=== PATIENT | male | born 1945 | race Caucasian/White ===

== ENCOUNTER 2018-02-18 06:59 | Day surgery (SDC) | payer MEDICARE, BC ==
[2018-02-17 12:39] LABS: BASOPHILS % (AUTO) 0.2 % (0-1); EOSINOPHILS # (AUTO) 0.2 X10'3 (0-0.9); EOSINOPHILS % (AUTO) 2.3 % (0-6); HEMATOCRIT 44.6 % (42.0-52.0); HEMOGLOBIN 14.7 g/dl (14.0-17.9); LYMPHOCYTES # (AUTO) 1.4 X10'3 (1.1-4.8); LYMPHOCYTES % (AUTO) 15.1 % (21-51); MEAN CORPUSCULAR HEMOGLOBIN 27.8 PG (27.0-31.0); MEAN CORPUSCULAR VOLUME 84.3 FL (78-98); MEAN PLATELET VOLUME 9.2 FL (7.4-10.4); MONOCYTES # (AUTO) 0.7 X10'3 (0-0.9); MONOCYTES % (AUTO) 7.1 % (2-12); NEUTROPHILS % (AUTO) 75.3 % (42-75); PLATELET COUNT 264 X10'3 (140-440); RED BLOOD COUNT 5.29 X10'6 (4.70-6.10); RED CELL DISTRIBUTION WIDTH 14.2 % (11.5-14.5); WHITE BLOOD COUNT 9.3 X10'3 (4.5-11.0)
[2018-02-17 12:49] LABS: ALBUMIN 3.5 G/DL (3.4-5.0); ANION GAP 9 (8-16); BLOOD UREA NITROGEN 23 MG/DL (7-18); BUN/CREATININE RATIO 17.8 (5.4-32.0); CALCIUM 8.7 MG/DL (8.5-10.1); CHLORIDE 102 MMOL/L (99-107); CREATININE 1.29 MG/DL (0.60-1.10); GLUCOSE 89 MG/DL (70-104); SODIUM 139 MMOL/L (135-145); TOTAL CARBON DIOXIDE 28.2 MMOL/L (24-32); eGFR 54 ML/MIN
[2018-02-17 13:03] LABS: PARTIAL THROMBOPLASTIN TIME 29 SECONDS (22-32); PROTHROMBIN TIME 10.3 SECONDS (9.0-12.0)
[~2018-02-18] VITALS: Ht 172.7 cm; Wt 91.7 kg
[2018-02-18] VITALS (15 sets, daily range): BP systolic 99–166; BP diastolic 40–78
[~2018-02-18 06:59] MED LIST: AMLO10TA PO; CLOP75TA35 PO; FAMO-128 PO; LISI-600 PO; METO-395 PO; MULT-1179 PO; NITR0.4T48 SL; PARO-62 PO; ROSU20TA PO
[2018-02-18] MEDS ORDERED: LORazepam 0.5 MG tablet PO PRN (07:25)
[2018-02-18] MEDS ORDERED: diphenhydrAMINE 25mg capsule PO PRN (07:25)
[2018-02-18] MEDS ORDERED: normal saline 1000ml 1,000 ML IV SCH ×2 (07:25→07:50)
[2018-02-18] MEDS ORDERED: sod bicarbonate 150mEq in D5W 1,150 ML IV ONE ×2 (07:25→17:10)
[2018-02-18] MEDS ORDERED: LIDOcaine 1% (10mg/ml) 2ml vial ONE (07:26)
[2018-02-18] MEDS ORDERED: acetylcysteine 200 MG/ml 4ml vial PO SCH (07:30)
[2018-02-18] MEDS ORDERED: METO25TA6 PO (07:39)
[2018-02-18] MEDS ORDERED: ASPI81TA52 PO (07:39)
[2018-02-18] MEDS ORDERED: NITR0.4T51 SL (07:39)
[2018-02-18] MEDS ORDERED: HYDR-4069 PO (07:39)
[2018-02-18] MEDS ORDERED: AMLO5TAB PO (07:39)
[2018-02-18] MEDS ORDERED: CLOP75TA15 PO (07:39)
[2018-02-18] MEDS ORDERED: VALS160T2 PO (07:39)
[2018-02-18] MEDS ORDERED: iohexol 350MG/ML 100ml bottle IV ONE ×2 (08:18→09:16)
[2018-02-18] MEDS ORDERED: nitroGLYCERIN-Tridil 50MG/D5W 250 ML IV ONE (08:18)
[2018-02-18] MEDS ORDERED: midazolam 2 mg/2 ml injection ONE ×2 (08:18→10:36)
[2018-02-18] MEDS ORDERED: heparin 1,000unit/ml 10ml vial 10 ML ONE (08:18)
[2018-02-18] MEDS ORDERED: LIDOcaine 1% 30ml preserv. free vial ONE (08:18)
[2018-02-18] MEDS ORDERED: iohexol 350 MG/ML 50ML vial IV ONE (08:18)
[2018-02-18] MEDS ORDERED: fentaNYL/PF 50MCG/1 ML 2ML syringe ONE (08:19)
[2018-02-18] MEDS ORDERED: pneumococcal 23-VAL P-sac vacc 25 mcg/0.5ml vial IMVAC ONE (10:00)
[2018-02-18] MEDS ORDERED: heparin 1,000 UNITS/NS 500ml 500 ML ONE (10:26)
[2018-02-18] MEDS ORDERED: acetaminophen 325mg tablet PO PRN (11:45)
[2018-02-18] MEDS ORDERED: OXAZEpam 15mg capsule PO PRN (11:45)
[2018-02-18] MEDS ORDERED: cyclobenzaprine 10mg tablet PO PRN (11:45)
[2018-02-18] MEDS ORDERED: aspirin 81mg tab.chew PO ONE (11:45)
[2018-02-18] MEDS ORDERED: proCHLORperazine 10 MG/2 ml inj IV PRN (11:45)
[2018-02-18] MEDS ORDERED: HYDROcodone/acetaminophen 10/325mg tab PO PRN ×2 (11:45→11:50)
[2018-02-18] MEDS ORDERED: magnesium hydroxide 30ml (MOM) UD suspension PO PRN (11:45)
[2018-02-18] MEDS ORDERED: docusate sod 100mg capsule PO SCH (20:00)
[2018-02-19] MEDS ORDERED: aspirin 325mg tablet PO SCH (08:00)
== END 2018-02-18 20:00 | disposition home or self-care (01) ==
LOC: SSTAY O 06:59
PROVIDERS: ATTEND Internal Medicine Cardiovascular Disease
DX: I25.708 Atherosclerosis of coronary artery bypass graft(s), unspecified, with other forms of angina pectoris (principal); E78.5 Hyperlipidemia, unspecified; G47.33 Obstructive sleep apnea (adult) (pediatric); I12.9 Hypertensive chronic kidney disease with stage 1 through stage 4 chronic kidney disease, or unspecified chronic kidney disease; E11.22 Type 2 diabetes mellitus with diabetic chronic kidney disease; N18.9 Chronic kidney disease, unspecified; I25.2 Old myocardial infarction; F32.9 Major depressive disorder, single episode, unspecified; E66.3 Overweight; F41.8 Other specified anxiety disorders; Z95.5 Presence of coronary angioplasty implant and graft; Z95.1 Presence of aortocoronary bypass graft; Z86.79 Personal history of other diseases of the circulatory system; Z79.82 Long term (current) use of aspirin; Z23 Encounter for immunization; Z87.891 Personal history of nicotine dependence; Z87.01 Personal history of pneumonia (recurrent); Z86.14 Personal history of Methicillin resistant Staphylococcus aureus infection; Z68.30 Body mass index [BMI] 30.0-30.9, adult; Z98.41 Cataract extraction status, right eye; Z98.42 Cataract extraction status, left eye; Z79.899 Other long term (current) drug therapy; Z98.890 Other specified postprocedural states; Z82.49 Family history of ischemic heart disease and other diseases of the circulatory system
CPT/HCPCS: 36415; 80048; 85025; 85347; 85610; 85730; 90732; 93005; 93459; 99152; 99153; A6257; C1725; C1769; C1885; C9604; J1644; J2250; J3010; J3490; J7030; Q0163; Q9967; A4620

== ENCOUNTER 2020-01-23 10:36 | Emergency (ER) | payer MEDICARE, BC ==
[~2020-01-23] VITALS: Ht 172.7 cm; Wt 87.7 kg
[~2020-01-23 10:36] MED LIST changes: -AMLO10TA PO; +AMLO5TAB PO; +ASPI81TA52 PO; +CLOP75TA15 PO; -CLOP75TA35 PO; -FAMO-128 PO; +HYDR-4069 PO; -LISI-600 PO; -METO-395 PO; +METO25TA6 PO; -NITR0.4T48 SL; +NITR0.4T51 SL; -ROSU20TA PO; +ROSU20TA2 PO; +VALS160T2 PO
[2020-01-23] MEDS ORDERED: ketorolac tromethamine 15mg/ml inj. IM ONE (11:35)
[2020-01-23 12:04] LABS: BASOPHILS # (AUTO) 0.1 X10'3 (0-0.2); BASOPHILS % (AUTO) 0.3 % (0-1); EOSINOPHILS # (AUTO) 0.2 X10'3 (0-0.9); EOSINOPHILS % (AUTO) 1.1 % (0-6); HEMATOCRIT 44.8 % (42.0-52.0); HEMOGLOBIN 14.8 g/dl (14.0-17.9); LYMPHOCYTES # (AUTO) 1.6 X10'3 (1.1-4.8); LYMPHOCYTES % (AUTO) 8.3 % (21-51); MEAN CORPUSCULAR HEMOGLOBIN 28.4 PG (27.0-31.0); MEAN CORPUSCULAR VOLUME 86.2 FL (78-98); MEAN PLATELET VOLUME 8.9 FL (7.4-10.4); MONOCYTES # (AUTO) 1.4 X10'3 (0-0.9); MONOCYTES % (AUTO) 7.3 % (2-12); NEUTROPHILS # (AUTO) 15.5 X10'3 (1.8-7.7); PLATELET COUNT 247 X10'3 (140-440); RED BLOOD COUNT 5.19 X10'6 (4.70-6.10); RED CELL DISTRIBUTION WIDTH 13.9 % (11.5-14.5); WHITE BLOOD COUNT 18.7 X10'3 (4.5-11.0)
[2020-01-23 12:12] LABS: PARTIAL THROMBOPLASTIN TIME 27 SECONDS (22-32)
[2020-01-23 12:14] LABS: ALANINE AMINOTRANSFERASE 23 U/L (12-78); ALBUMIN 3.8 G/DL (3.4-5.0); ALBUMIN/GLOBULIN RATIO 1.2 (1.1-1.5); ALKALINE PHOSPHATASE 75 IU/L (46-116); ANION GAP 7 (8-16); ASPARTATE AMINO TRANSFERASE 17 U/L (10-37); BILIRUBIN,TOTAL 0.5 MG/DL (0.1-1.0); BLOOD UREA NITROGEN 25 MG/DL (7-18); BUN/CREATININE RATIO 17.7 (5.4-32.0); CHLORIDE 101 MMOL/L (99-107); CREATININE 1.41 MG/DL (0.60-1.10); GLUCOSE 100 MG/DL (70-104); POTASSIUM 4.7 MMOL/L (3.5-5.1); SODIUM 137 MMOL/L (135-145); TOTAL CARBON DIOXIDE 29.5 MMOL/L (24-32); TOTAL PROTEIN 6.9 G/DL (6.4-8.2); eGFR 49 ML/MIN
[2020-01-23 12:22] LABS: MAGNESIUM 1.9 MG/DL (1.5-2.4)
[2020-01-23] MEDS ORDERED: normal saline 1000ML IV soln IVB ONE (12:40)
[2020-01-23 12:54] LABS: CLARITY,URINE CLEAR (Clear); COLOR,URINE YELLOW (Yellow); GLUCOSE, URINE NEGATIVE (Neg); KETONES,URINE NEGATIVE (Neg); LEUKOCYTE ESTERASE ,URINE NEGATIVE (Neg); NITRITES, URINE NEGATIVE (Neg); OCCULT BLOOD,URINE NEGATIVE (Neg); PH,URINE 6.5 (4.8-8.0); PROTEIN,URINE TRACE mg/dl (Neg)
[2020-01-23 12:55] LABS: UA COLLECTION TYPE CLN CATCH MIDSTREAM
[2020-01-23 13:04] LABS: BACTERIA,URINE NONE SEEN /HPF (Neg); CELLULAR CAST 0-4 /LPF (NEGATIVE); MUCUS STRANDS NONE SEEN /LPF (Neg); RBC,URINE NONE SEEN /HPF (0-2); SQUAMOUS EPITHELIAL CELL,UR FEW /LPF (FEW); WBC,URINE 0-4 /HPF (0-4)
[2020-01-23] MEDS ORDERED: LEVO500T89 PO (13:10)
[2020-01-23] MEDS ORDERED: TRAM100T40 PO (13:16)
[2020-01-23 13:31] VITALS: BP 98/168
== END 2020-01-23 13:36 | disposition left against medical advice (07) ==
LOC: ER 10:37
DX: D72.829 Elevated white blood cell count, unspecified (principal); M25.512 Pain in left shoulder; M79.602 Pain in left arm; E11.42 Type 2 diabetes mellitus with diabetic polyneuropathy; I25.10 Atherosclerotic heart disease of native coronary artery without angina pectoris; I10 Essential (primary) hypertension; I25.2 Old myocardial infarction; Z95.1 Presence of aortocoronary bypass graft; Z98.890 Other specified postprocedural states; Z79.82 Long term (current) use of aspirin; Z79.899 Other long term (current) drug therapy
CPT/HCPCS: 36415; 71045; 80053; 81001; 83605; 83735; 83880; 84145; 84484; 85025; 85610; 85730; 87040; 93005; 96360; 96372; 99285; J1885; J7030

== ENCOUNTER 2020-03-10 09:29 | Emergency (ER) | payer OTHER, MEDICARE, BC ==
[~2020-03-10] VITALS: Ht 172.7 cm; Wt 86.0 kg
[~2020-03-10 09:29] MED LIST changes: +TRAM100T40 PO
[2020-03-10 09:32] VITALS: BP 163/69
--- NOTE | 2020-03-10 09:40 | NUR ---
chelsie cunha at bedside.
[2020-03-10] MEDS ORDERED: ketorolac tromethamine 15mg/ml inj. IM ONE (10:00)
[2020-03-10] MEDS ORDERED: HYDR-4383 PO (10:02)
== END 2020-03-10 10:11 | disposition home or self-care (01) ==
LOC: ER 09:30
DX: M25.512 Pain in left shoulder (principal); G62.9 Polyneuropathy, unspecified; I25.709 Atherosclerosis of coronary artery bypass graft(s), unspecified, with unspecified angina pectoris; I11.9 Hypertensive heart disease without heart failure; K57.92 Diverticulitis of intestine, part unspecified, without perforation or abscess without bleeding; Z79.899 Other long term (current) drug therapy; Z79.4 Long term (current) use of insulin; X58.XXXA Exposure to other specified factors, initial encounter; Y93.89 Activity, other specified; Y92.89 Other specified places as the place of occurrence of the external cause; Y99.8 Other external cause status
CPT/HCPCS: 96372; 99283; J1885

== ENCOUNTER 2020-03-30 11:25 | Emergency (ER) | payer OTHER, MEDICARE, BC ==
[~2020-03-30] VITALS: Ht 172.7 cm; Wt 88.0 kg
[~2020-03-30 11:25] MED LIST changes: +HYDR-4383 PO
[2020-03-30] MEDS ORDERED: ketorolac trometh. 30mg/ml inj. IM ONE (11:55)
[2020-03-30] MEDS ORDERED: TRAM50TA2 PO (12:12)
[2020-03-30 12:17] VITALS: BP 164/64
== END 2020-03-30 12:16 | disposition home or self-care (01) ==
LOC: ER 11:26
DX: M25.511 Pain in right shoulder (principal); E11.42 Type 2 diabetes mellitus with diabetic polyneuropathy; I25.10 Atherosclerotic heart disease of native coronary artery without angina pectoris; I10 Essential (primary) hypertension; I25.2 Old myocardial infarction; Z98.890 Other specified postprocedural states; Z79.82 Long term (current) use of aspirin; Z79.899 Other long term (current) drug therapy
CPT/HCPCS: 96372; 99283; J1885

== ENCOUNTER 2021-07-14 10:47 | Emergency (ER) | payer OTHER, MEDICARE ==
[~2021-07-14] VITALS: Ht 172.7 cm; Wt 81.8 kg
[~2021-07-14 10:47] MED LIST changes: +LOP25T PO; -METO25TA6 PO
[2021-07-14 10:52] VITALS: BP 159/84
== END 2021-07-14 12:21 | disposition home or self-care (01) ==
LOC: ER 10:47
DX: R21 Rash and other nonspecific skin eruption (principal); L29.9 Pruritus, unspecified; E11.43 Type 2 diabetes mellitus with diabetic autonomic (poly)neuropathy; I25.10 Atherosclerotic heart disease of native coronary artery without angina pectoris; I10 Essential (primary) hypertension; I25.2 Old myocardial infarction; Z87.19 Personal history of other diseases of the digestive system; Z95.5 Presence of coronary angioplasty implant and graft; Z98.890 Other specified postprocedural states; Z87.891 Personal history of nicotine dependence; Z79.82 Long term (current) use of aspirin; Z79.899 Other long term (current) drug therapy
CPT/HCPCS: 99282

== ENCOUNTER 2023-11-20 06:31 | Day surgery (SDC) | payer OTHER, MEDICARE ==
[~2023-11-20] VITALS: Ht 172.7 cm; Wt 87.7 kg
[2023-11-20] VITALS (9 sets, daily range): BP systolic 136–164; BP diastolic 52–83; PULSE 59–62; RESP 12–16; TEMP 97.8; O2SAT 94–98
[~2023-11-20 06:31] MED LIST changes: -HYDR-4069 PO; +HYDR25TA90 PO; +PARO-141 PO; -PARO-62 PO
[2023-11-20] MEDS ORDERED: cefazolin 2gm/D5W 100mL 100 ML IV ONE (07:05)
[2023-11-20] MEDS ORDERED: ROSU40TA PO (07:07)
[2023-11-20] MEDS ORDERED: LOSA100T58 PO (07:07)
[2023-11-20 07:27] LABS: BASOPHILS % (AUTO) 0.4 % (0-1); EOSINOPHILS # (AUTO) 0.3 X10'3 (0-0.9); EOSINOPHILS % (AUTO) 3.8 % (0-6); HEMATOCRIT 44.4 % (42.0-52.0); HEMOGLOBIN 14.6 g/dl (14.0-17.9); LYMPHOCYTES # (AUTO) 1.4 X10'3 (1.1-4.8); LYMPHOCYTES % (AUTO) 16.8 % (21-51); MEAN CORPUSCULAR HEMOGLOBIN 27.9 PG (27.0-31.0); MEAN CORPUSCULAR HGB CONC 32.9 g/dL (33.0-36.5); MEAN CORPUSCULAR VOLUME 84.7 FL (78-98); MONOCYTES # (AUTO) 0.9 X10'3 (0-0.9); MONOCYTES % (AUTO) 10.8 % (2-12); NEUTROPHILS # (AUTO) 5.7 X10'3 (1.8-7.7); NEUTROPHILS % (AUTO) 68.2 % (42-75); PLATELET COUNT 241 X10'3 (140-440); RED BLOOD COUNT 5.24 X10'6 (4.70-6.10); RED CELL DISTRIBUTION WIDTH 15.2 % (11.5-14.5); WHITE BLOOD COUNT 8.4 X10'3 (4.5-11.0)
[2023-11-20 07:39] LABS: APTT 27 SECONDS (22-32); PROTHROMBIN TIME 10.5 SECONDS (9.0-12.0)
[2023-11-20 07:41] LABS: ANION GAP 10 (8-16); BLOOD UREA NITROGEN 18 MG/DL (7-18); BUN/CREATININE RATIO 14.3 (10.0-20.0); CALCIUM 9.3 MG/DL (8.5-10.1); CHLORIDE 104 MMOL/L (99-107); CREATININE 1.26 MG/DL (0.60-1.10); GLUCOSE 99 MG/DL (70-104); POTASSIUM 4.4 MMOL/L (3.5-5.1); SODIUM 139 MMOL/L (135-145); TOTAL CARBON DIOXIDE 25.3 MMOL/L (24-32); eCRCL 45 ML/MIN; eGFR 55 ML/MIN
[2023-11-20] MEDS ORDERED: ceFAZolin 1000mg inj ONE (07:52)
[2023-11-20] MEDS ORDERED: LIDOcaine 1% w/EPI 1:100,000 inj. MDV 50 ML VIAL ONE (07:52)
[2023-11-20] MEDS ORDERED: fentaNYL/PF 50MCG/1 ML 2ML syringe ONE (08:07)
[2023-11-20] MEDS ORDERED: midazolam 1 mg/ML 2ml injection ONE ×3 (08:07→09:31)
[2023-11-20] MEDS ORDERED: CEPH-585 PO (10:13)
[2023-11-20] MEDS ORDERED: HYDROcodone/acetaminophen 5mg/325mg tablet PO PRN (10:15)
[2023-11-20] MEDS: vancomycin/NS 1 GM ADD-VANTAGE 250 ML IV ONE (11:43)
[2023-11-20] MEDS: HYDROcodone/acetaminophen 10/325mg tab PO PRN (11:43)
== END 2023-11-20 13:50 | disposition home or self-care (01) ==
LOC: SSTAY O 06:31
PROVIDERS: ATTEND Internal Medicine Cardiovascular Disease
DX: I49.5 Sick sinus syndrome (principal); I44.7 Left bundle-branch block, unspecified; I11.0 Hypertensive heart disease with heart failure; I50.22 Chronic systolic (congestive) heart failure; E11.9 Type 2 diabetes mellitus without complications; I25.810 Atherosclerosis of coronary artery bypass graft(s) without angina pectoris; E78.5 Hyperlipidemia, unspecified; E66.3 Overweight; G47.30 Sleep apnea, unspecified; I42.0 Dilated cardiomyopathy; I73.9 Peripheral vascular disease, unspecified; I25.2 Old myocardial infarction; Z86.73 Personal history of transient ischemic attack (TIA), and cerebral infarction without residual deficits; Z79.82 Long term (current) use of aspirin; Z79.899 Other long term (current) drug therapy; Z95.5 Presence of coronary angioplasty implant and graft; Z98.890 Other specified postprocedural states; Z68.29 Body mass index [BMI] 29.0-29.9, adult
CPT/HCPCS: 33208; 33286; 36415; 71046; 80048; 85025; 85610; 85730; 93005; 99152; 99153; C1785; C1898; J0690; J2250; J3010; J3370; J3490; J7030; A4565; A4615; A6449

== ENCOUNTER 2024-08-13 11:29 | Emergency (ER) | payer OTHER, MEDICARE ==
[~2024-08-13] VITALS: Ht 172.7 cm; Wt 80.9 kg
[~2024-08-13 11:29] MED LIST changes: -HYDR-4383 PO; +LOSA100T58 PO; -ROSU20TA2 PO; +ROSU40TA PO; -TRAM100T40 PO
[2024-08-13 11:51] VITALS: BP 123/64; PULSE 61; RESP 16; O2SAT 99
[2024-08-13] MEDS ORDERED: HYDR-3972 PO (14:03)
[2024-08-13 14:20] VITALS: TEMP 98.8
== END 2024-08-13 14:22 | disposition home or self-care (01) ==
LOC: ER 11:30
DX: M25.561 Pain in right knee (principal); I11.0 Hypertensive heart disease with heart failure; I50.9 Heart failure, unspecified; E11.42 Type 2 diabetes mellitus with diabetic polyneuropathy; I25.10 Atherosclerotic heart disease of native coronary artery without angina pectoris; I25.2 Old myocardial infarction; Z95.1 Presence of aortocoronary bypass graft; Z98.890 Other specified postprocedural states; Z79.899 Other long term (current) drug therapy
CPT/HCPCS: 73700; 99284

== ENCOUNTER 2024-08-16 11:46 | Emergency (ER) | payer OTHER, MEDICARE ==
[~2024-08-16] VITALS: Ht 172.7 cm; Wt 81.8 kg
[~2024-08-16 11:46] MED LIST changes: +HYDR-3972 PO
[2024-08-16 16:44] LABS: BASOPHILS # (AUTO) 0.1 X10'3 (0-0.2); EOSINOPHILS # (AUTO) 0.1 X10'3 (0-0.9); EOSINOPHILS % (AUTO) 1.3 % (0-6); HEMATOCRIT 36.7 % (42.0-52.0); HEMOGLOBIN 11.8 g/dl (14.0-17.9); LYMPHOCYTES % (AUTO) 9.4 % (21-51); MEAN CORPUSCULAR HEMOGLOBIN 26.4 PG (27.0-31.0); MEAN CORPUSCULAR HGB CONC 32.2 g/dL (33.0-36.5); MEAN CORPUSCULAR VOLUME 82.2 FL (78-98); MEAN PLATELET VOLUME 7.2 FL (7.4-10.4); MONOCYTES # (AUTO) 0.9 X10'3 (0-0.9); MONOCYTES % (AUTO) 8.3 % (2-12); NEUTROPHILS # (AUTO) 8.8 X10'3 (1.8-7.7); PLATELET COUNT 483 X10'3 (140-440); RED BLOOD COUNT 4.46 X10'6 (4.70-6.10); RED CELL DISTRIBUTION WIDTH 14.4 % (11.5-14.5)
[2024-08-16 17:04] LABS: ALBUMIN 3.2 G/DL (3.4-5.0); ANION GAP 9 (8-16); BLOOD UREA NITROGEN 23 MG/DL (7-18); BUN/CREATININE RATIO 17.2 (10.0-20.0); C-REACTIVE PROTEIN 15.83 MG/DL (0.0-0.5); CALCIUM 9.1 MG/DL (8.5-10.1); CHLORIDE 100 MMOL/L (99-107); CREATININE 1.34 MG/DL (0.60-1.10); GLUCOSE 100 MG/DL (70-104); POTASSIUM 4.7 MMOL/L (3.5-5.1); SODIUM 136 MMOL/L (135-145); TOTAL CARBON DIOXIDE 27.1 MMOL/L (24-32); eCRCL 42 ML/MIN; eGFR 51 ML/MIN
[2024-08-16 18:16] VITALS: BP 141/58; PULSE 60; RESP 16; TEMP 98.1; O2SAT 96
== END 2024-08-16 18:18 | disposition home or self-care (01) ==
LOC: ER 11:47
DX: M66.0 Rupture of popliteal cyst (principal); E11.42 Type 2 diabetes mellitus with diabetic polyneuropathy; I11.0 Hypertensive heart disease with heart failure; I25.10 Atherosclerotic heart disease of native coronary artery without angina pectoris; I50.9 Heart failure, unspecified; Z95.1 Presence of aortocoronary bypass graft; Z98.890 Other specified postprocedural states
CPT/HCPCS: 36415; 80048; 85025; 85651; 86140; 93971; 99284

== ENCOUNTER 2024-09-22 07:07 | Day surgery (SDC) | payer MEDICARE, OTHER ==
[2024-09-22] VITALS (11 sets, daily range): BP systolic 108–132; BP diastolic 50–91; PULSE 60–70; RESP 12–19; TEMP 97.8; O2SAT 92–99
[~2024-09-22] VITALS: Ht 172.7 cm; Wt 83.1 kg
[~2024-09-22 07:07] MED LIST changes: -HYDR-3972 PO
--- NOTE | 2024-09-22 07:33 | ELECTROCARDIOGRAPH REPORT ---
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 Conrad Do Measurements Intervals [place] Rate: 62 P: 0 VA: 69 QRS: -76 QRSD: 166 T: 81 QT: 516 QTc: 524 Interpretive Statements Ventricular-paced rhythm No further analysis attempted due to paced rhythm Electronically Signed On 09-22-2024 11:40:[address] Conrad Do Please click the below link to view image of tracing.
[2024-09-22] MEDS ORDERED: MIDAZolam 1mg/ml 10ml vial IV ONE (07:50)
[2024-09-22] MEDS ORDERED: normal saline 1000ml 1,000 ML IV SCH (07:50)
[2024-09-22] MEDS ORDERED: morphine 10mg/ml inj. IV ONE (07:50)
[2024-09-22] MEDS ORDERED: diphenhydrAMINE 25mg capsule PO ONE (07:50)
[2024-09-22] MEDS ORDERED: atropine 0.1mg/ml 10ml syringe IV ONE (07:50)
[2024-09-22] MEDS ORDERED: LORazepam 0.5 MG tablet PO ONE (07:50)
[2024-09-22] MEDS ORDERED: amiodarone 150mg/dext, iso-os 100 ML IV ONE (07:50)
[2024-09-22] MEDS ORDERED: AMI200T PO (07:52)
[2024-09-22] MEDS ORDERED: APIX5TAB3 PO (07:52)
[2024-09-22 08:33] LABS: BASOPHILS # (AUTO) 0.1 X10'3 (0-0.2); BASOPHILS % (AUTO) 0.5 % (0-1); EOSINOPHILS # (AUTO) 0.2 X10'3 (0-0.9); EOSINOPHILS % (AUTO) 1.4 % (0-6); HEMATOCRIT 37.5 % (42.0-52.0); HEMOGLOBIN 11.6 g/dl (14.0-17.9); LYMPHOCYTES # (AUTO) 0.9 X10'3 (1.1-4.8); LYMPHOCYTES % (AUTO) 7.8 % (21-51); MEAN CORPUSCULAR VOLUME 80.8 FL (78-98); MEAN PLATELET VOLUME 7.2 FL (7.4-10.4); MONOCYTES # (AUTO) 1.1 X10'3 (0-0.9); MONOCYTES % (AUTO) 9.5 % (2-12); NEUTROPHILS # (AUTO) 9.4 X10'3 (1.8-7.7); NEUTROPHILS % (AUTO) 80.8 % (42-75); PLATELET COUNT 430 X10'3 (140-440); RED BLOOD COUNT 4.64 X10'6 (4.70-6.10); RED CELL DISTRIBUTION WIDTH 15.8 % (11.5-14.5); WHITE BLOOD COUNT 11.6 X10'3 (4.5-11.0)
[2024-09-22 08:37] LABS: ALBUMIN 3.3 G/DL (3.4-5.0); ANION GAP 9 (8-16); BLOOD UREA NITROGEN 29 MG/DL (7-18); CALCIUM 8.9 MG/DL (8.5-10.1); CHLORIDE 105 MMOL/L (99-107); CREATININE 1.38 MG/DL (0.60-1.10); GLUCOSE 110 MG/DL (70-104); POTASSIUM 4.2 MMOL/L (3.5-5.1); SODIUM 140 MMOL/L (135-145); TOTAL CARBON DIOXIDE 26.3 MMOL/L (24-32); eCRCL 41 ML/MIN; eGFR 49 ML/MIN
[2024-09-22 08:42] LABS: APTT 35 SECONDS (22-32); INR 1.3 INR; PROTHROMBIN TIME 12.6 SECONDS (9.0-12.0)
[2024-09-22] MEDS ORDERED: amiodarone 50MG/ML inj IV ONE (08:51)
[2024-09-22] MEDS ORDERED: midazolam 1 mg/ML 2ml injection ONE ×2 (08:52→09:16)
[2024-09-22] MEDS ORDERED: fentaNYL/PF 50MCG/1 ML 2ML syringe ONE (08:52)
[2024-09-22] MEDS ORDERED: atropine 0.1mg/ml 10ml syringe ONE (08:52)
--- NOTE | 2024-09-22 10:19 | ELECTROCARDIOGRAPH REPORT ---
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 Conrad Do Measurements Intervals [place] Rate: 60 P: 109 IL: 341 QRS: -30 QRSD: 125 T: -51 QT: 543 QTc: 543 Interpretive Statements A-V dual-paced rhythm with some inhibition No further analysis attempted due to paced rhythm Electronically Signed On 09-22-2024 11:41:[address] Conrad Do Please click the below link to view image of tracing.
--- NOTE | 2024-09-22 15:33 | CARDIOLOGY REPORT ---
DATE OF SERVICE: 09/22/2024 DICTATING PHYSICIAN: SHERI Johnson MD [facility] PH[facility]ICIAN: CO Remberto Lay. MANAGER COMPLETIONS: SHERI Johnson MD. INDICATION: The patient is an 79-year-old male with history of diabetes, hypertension, hyperlipidemia, sleep apnea, CAD, history of pulmonary stent, CABG x3 and coronary stenting with paroxysmal atrial fibrillation and also pacemaker insertion. The patient's history of his pacemaker indicated. The patient has been having increasing episodes of AFib episodes on December 26 and then on August 27 he was also in AFib. The patient has been having exertional fatigue, tiredness, shortness of breath. The patient is on amiodarone and Eliquis and beta-edil. After discussing risks, benefits, alternative options, the patient prefers to proceed with electrical cardioversion. The patient had a pacemaker implantation back on 11/20/2023 and the patient is on amiodarone using biphasic electrocautery 150 joules. The patient underwent ventricular AV paced rhythm. His pacing rate was increased to 70 per minute. IMPRESSION: An 79-year-old male with persistent atrial flutter, converted to normal sinus rhythm. RECOMMENDATIONS: * Continue amiodarone 200 mg once a day. * Eliquis 5 mg p.o. b.i.d. * Metoprolol 12.5 mg p.o. b.i.d. * The patient appears to have underlying sleep apnea as well. * Recommend outpatient sleep study as well. SHERI Johnson MD TID: [id number] RECEIPT: [id number] HENRY/JOHN/RAMIRO MTDBen
== END 2024-09-22 12:20 | disposition home or self-care (01) ==
LOC: SSTAY O 07:07
PROVIDERS: ATTEND Internal Medicine Cardiovascular Disease
DX: I48.92 Unspecified atrial flutter (principal); I48.0 Paroxysmal atrial fibrillation; E11.9 Type 2 diabetes mellitus without complications; I10 Essential (primary) hypertension; E78.5 Hyperlipidemia, unspecified; G47.30 Sleep apnea, unspecified; I25.10 Atherosclerotic heart disease of native coronary artery without angina pectoris; Z95.5 Presence of coronary angioplasty implant and graft; Z79.899 Other long term (current) drug therapy; Z95.1 Presence of aortocoronary bypass graft; Z95.0 Presence of cardiac pacemaker
CPT/HCPCS: 36415; 80048; 85025; 85610; 85730; 92960; 93005; 99152; J2250; J3010; J7030; A4620; J0282; J0461